=== PATIENT | male | born 1935 | race Caucasian/White ===

== ENCOUNTER 2022-07-21 07:30 | Emergency (ER) | payer MEDICARE, BC ==
[~2022-07-21] VITALS: Ht 177.8 cm; Wt 72.7 kg
--- NOTE | 2022-07-21 07:47 | NUR ---
EKG BEING DONE BY TECH.
[2022-07-21] MEDS ORDERED: bacitracin 15gm ointment TP ONE (08:10)
[2022-07-21 09:35] LABS: CLARITY,URINE SLIGHTLY CLOUDY (Clear); COLOR,URINE YELLOW (Yellow); GLUCOSE, URINE NEGATIVE (Neg); KETONES,URINE NEGATIVE (Neg); LEUKOCYTE ESTERASE ,URINE SMALL (Neg); NITRITES, URINE NEGATIVE (Neg); OCCULT BLOOD,URINE NEGATIVE (Neg); PROTEIN,URINE NEGATIVE (Neg); UROBILINOGEN,URINE 0.2 E.U/dL (0.2-1.0)
[2022-07-21 09:38] LABS: UA COLLECTION TYPE CLN CATCH MIDSTREAM
[2022-07-21 09:40] LABS: CAL OXALATE CRYSTALS 3+ /HPF (NEGATIVE)
[2022-07-21] MEDS ORDERED: LIDOcaine/epinephrine/tetracaine TOPICAL sol 3 ML syringe TOP ONE (09:40)
[2022-07-21] MEDS ORDERED: acetaminophen 325mg tablet PO ONE (09:40)
[2022-07-21 09:41] LABS: BACTERIA,URINE FEW /HPF (Neg); MUCUS STRANDS NONE SEEN /LPF (Neg); RBC,URINE NONE SEEN /HPF (0-2); SQUAMOUS EPITHELIAL CELL,UR FEW /LPF (FEW)
[2022-07-21 09:42] LABS: COARSE GRANULAR CAST 0-3 /LPF (NEGATIVE); WBC,URINE 30-50 /HPF (0-4)
[2022-07-21] MEDS ORDERED: CefTRIAXone/D5W-Rocephin 1gm 50 ML IV ONE (09:50)
[2022-07-21] MEDS ORDERED: CEPH250T PO (10:09)
[2022-07-21 11:34] VITALS: BP 141/63
== END 2022-07-21 11:36 | disposition home or self-care (01) ==
LOC: ER 07:30
DX: S61.217A Laceration without foreign body of left little finger without damage to nail, initial encounter (principal); S00.12XA Contusion of left eyelid and periocular area, initial encounter; S00.31XA Abrasion of nose, initial encounter; F03.90 Unspecified dementia, unspecified severity, without behavioral disturbance, psychotic disturbance, mood disturbance, and anxiety; W19.XXXA Unspecified fall, initial encounter; Y93.89 Activity, other specified; Y92.89 Other specified places as the place of occurrence of the external cause; Y99.8 Other external cause status
CPT/HCPCS: 70450; 70486; 71045; 72125; 81001; 87088; 93005; 96365; 99285; J0696; A6258